=== PATIENT | male | born 1975 | race Caucasian/White ===

== ENCOUNTER 2017-01-01 12:25 | Emergency (ER) | payer OTHER ==
[~2017-01-01] VITALS: Ht 165.1 cm; Wt 128.8 kg
[~2017-01-01 12:25] MED LIST: BEN50 PO; PRED20TA6 PO; PRED50TA2 PO
[2017-01-01 13:09] VITALS: BP 160/108
--- NOTE | 2017-01-01 15:15 | NUR ---
PATIENT LEFT WITHOUT BEING SEEN BY DR. DOYLE. NO FURTHER CARE PROVIDED FOR PATIENT.
== END 2017-01-01 15:15 | disposition left against medical advice (07) ==
LOC: MED 12:25
DX: R21 Rash and other nonspecific skin eruption (principal); Z53.21 Procedure and treatment not carried out due to patient leaving prior to being seen by health care provider